=== PATIENT | female | born 1995 ===

== ENCOUNTER 2017-02-15 02:14 | Emergency (ER) | payer OTHER ==
[2017-02-15 02:30] VITALS: BP 114/73
--- NOTE | 2017-02-15 02:38 | EDM.PDOC ---
ED HPI GENERAL MEDICAL PROBLEM - General Chief Complaint: Neurological Problem Stated Complaint: CONFUSED AND NUMB FEELING Time Seen by Provider: 02/15/17 02:22 Source of Information: Reports: Patient, Family History Limitations: Reports: No Limitations - History of Present Illness INITIAL COMMENTS - FREE TEXT/NARRATIVE: This is a 21-year-old female. She went out to [employer] this evening with some of her girl friends. She states she maybe had for 5 drinks. She remembers going outside with her friends because one of her friends was throwing up and she was holding her hair back and then she remembers another friend coming by and saying, "come with me Jeferson she is going to be okay." That is the last thing this patient remembers in the next thing she remembers she is walking up the stairs to her parents house and she goes inside. She doesn 't remember getting out of a car she does remember anything since that time and she doesn't remember the time frame between when she was with her friend that was throwing up and getting to her parents house. Her mother states that when she came into the house the patient was trying to tell them a story but the story didn't make any sense at all. The patient was not slurring at the time. The patient states she has no idea where her purse is or where her car is. She says to her parents she was at a republican at another person's house but when they go to that person's house there is a car there that is like hers but it is not her ears. Due to this confusion she is having she comes to the ER. When I speak to the patient without the mother in the room the patient denies when she became aware that she was at home and her parents that anything was disturbed in her breast area or her underwear was disturbed and she has no vaginal discharge. She does not believe that she was molested but she isn't absolutely certain either. She says she just doesn't remember what happened during that time. She is tearful. - Related Data Allergies Allergy/AdvReac Type Severity Reaction Status Date / Time oxycodone Allergy Nausea and Verified 02/15/17 02:30 Vomiting red dye Allergy Headache Verified 02/15/17 02:30 Home Meds: Home Meds Aspirin [Halfprin] 81 mg PO Q2D 08/07/14 [History] Control Med 1 tab PO DAILY 08/07/14 [History] Past Medical History HEENT History: Reports: Impaired Vision, Other (See Below) Other HEENT History: wears glasses Other Cardiovascular History: aoritc valve regurgitation and aortic stenosis Gastrointestinal History: Reports: Gastritis [employer] History: Reports: Polycystic Ovaries Neurological History: Reports: CVA, Other (See Below) Other Neuro History: at age 12; 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 Psychiatric History: Reports: ADD Other Oncologic History: benign brain tumor - Past Surgical History HEENT Surgical History: Reports: Tonsillectomy Other Musculoskeletal Surgeries/Procedures:: bunionectomy Social & Family History - Family History Family Medical History: Noncontributory - Tobacco Use Smoking Status *Q: Never Smoker Second Hand Smoke Exposure: No - Alcohol Use Days Per Week of Alcohol Use: 0 - Recreational Drug Use Recreational Drug Use: No - Living Situation & Occupation Living situation: Reports: Single Occupation: Employed ED ROS GENERAL - Review of Systems Review Of Systems: See Below Constitutional: Reports: No Symptoms HEENT: Reports: No Symptoms Respiratory: Reports: No Symptoms Cardiovascular: Reports: No Symptoms Endocrine: Reports: No Symptoms GI/Abdominal: Reports: No Symptoms : Reports: No Symptoms Musculoskeletal: Reports: No Symptoms Skin: Reports: No Symptoms Neurological: Reports: Confusion, Other (She has a history of a stroke when she was 12 years old but everything resolved) Psychiatric: Reports: Anxiety, Confusion Hematologic/Lymphatic: Reports: No Symptoms - Physical Exam Exam: See Below Exam Limited By: No Limitations General Appearance: Alert, WD/WN, Mild Distress, Other (She is oriented [address] time and person and the people around her she knows) Eye Exam: Bilateral Eye: Normal Inspection Ears: Normal External Exam, Normal Canal, Normal TMs Nose: Normal Inspection Throat/Mouth: Normal Inspection, Normal Lips, Normal Voice, No Airway Compromise Head Exam: Normocephalic Neck: Normal Inspection, Supple Respiratory/Chest: No Respiratory Distress, Lungs Clear, Normal Breath Sounds Cardiovascular: Regular Rate, Rhythm, No Murmur GI/Abdominal: Soft, Non-Tender Neuro Exam (Abbreviated): Alert, Oriented, No Motor/Sensory Deficits, Confused, Other (Patient has no facial drooping or ptosis, she moves her all 4 extremities equally 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 Course - Vital Signs Last Recorded V/S: Last Vital Signs Temp 97.5 F 02/15/17 02:23 Pulse 95 02/15/17 02:23 Resp 18 02/15/17 02:23 BP 114/73 02/15/17 02:23 Pulse Ox 100 02/15/17 02:23 - Orders/Labs/Meds Orders: Active Orders 24 hr Category Date Time Status Head wo Cont [CT] Stat Exams 02/15/17 02:31 Taken Labs: Laboratory Tests 02/15/17 02/15/17 02/15/17 Range/Units 02:45 02:45 02:48 WBC 8.46 (3.98-10.04) K/mm3 RBC 4.71 (3.98-5.22) M/mm3 Hgb 12.5 (11.2-15.7) gm/L Hct 36.6 (34.1-44.9) % MCV 77.7 L (79.4-94.8) fl MCH 26.5 (25.6-32.2) pg MCHC 34.2 (32.2-35.5) g/dl RDW Std Deviation 41.3 (36.4-46.3) fL Plt Count 301 (182-369) K/mm3 MPV 9.8 (9.4-12.3) fl Neut % (Auto) 44.3 (34.0-71.1) % Lymph % (Auto) 42.1 (19.3-51.7) % [place] % (Auto) 8.2 (4.7-12.5) % Eos % (Auto) 4.5 (0.7-5.8) Baso % (Auto) 0.7 (0.1-1.2) % Neut # (Auto) 3.75 (1.56-6.13) K/mm3 Lymph # (Auto) 3.56 (1.18-3.74) K/mm3 Sierra # (Auto) 0.69 H (0.24-0.36) K/mm3 Eos # (Auto) 0.38 H (0.04-0.36) K/mm3 Baso # (Auto) 0.06 (0.01-0.08) K/mm3 Sodium (136-145) mEq/L Potassium (3.5-5.1) mEq/L Chloride (98-107) mEq/L Carbon Dioxide (21-32) mEq/L Anion Gap (5-15) BUN (7-18) mg/dL Creatinine (0.55-1.02) mg/dL Est Cr Clr Drug Dosing mL/min Estimated GFR (MDRD) (>60) mL/min BUN/Creatinine Ratio (14-18) Glucose (74-106) mg/dL Calcium (8.5-10.1) mg/dL Total Bilirubin (0.2-1.0) mg/dL AST (15-37) U/L ALT (14-59) U/L Alkaline Phosphatase (46-116) U/L Total Protein (6.4-8.2) g/dl Albumin (3.4-5.0) g/dl Globulin gm/dL Albumin/Globulin Ratio (1-2) HCG, Qual (NEGATIVE) Urine Color Light yellow (Yellow) Urine Appearance Clear (Clear) Urine pH 6.5 (5.0-8.0) Ur Specific [place] 1.010 (1.005-1.030) Urine Protein Negative (Negative) Urine Glucose (UA) Negative (Negative) Urine Ketones Negative (Negative) Urine Occult Blood Negative (Negative) Urine Nitrite Negative (Negative) Urine Bilirubin Negative (Negative) Urine Urobilinogen 0.2 (0.2-1.0) Ur Leukocyte Esterase Negative (Negative) Urine RBC Not seen (0-5) /hpf Urine WBC Not seen (0-5) /hpf Ur Epithelial Cells Not seen (0-5) /hpf Urine Bacteria Not seen (FEW) /hpf Urine Mucus Not seen (FEW) /hpf Urine Opiates Screen Negative (NEGATIVE) Ur Buprenorphine Scrn Negative (NEGATIVE) Ur Oxycodone Screen Negative (NEGATIVE) Urine Methadone Screen Negative (NEGATIVE) Ur Propoxyphene Screen Negative (NEGATIVE) Ur Barbiturates Screen Negative (NEGATIVE) Ur Tricyclics Screen Negative (NEGATIVE) Ur Phencyclidine Scrn Negative (NEGATIVE) Ur Amphetamine Screen Negative (NEGATIVE) U Methamphetamines Scrn Negative (NEGATIVE) U Benzodiazepines Scrn Negative (NEGATIVE) U Cocaine Metab Screen Negative (NEGATIVE) U Marijuana (THC) Screen Negative (NEGATIVE) Ethyl Alcohol (0.00) gm% 02/15/17 02/15/17 Range/Units 02:48 02:48 WBC (3.98-10.04) K/mm3 RBC (3.98-5.22) M/mm3 Hgb (11.2-15.7) gm/L Hct (34.1-44.9) % MCV (79.4-94.8) fl MCH (25.6-32.2) pg MCHC (32.2-35.5) g/dl RDW Std Deviation (36.4-46.3) fL Plt Count (182-369) K/mm3 MPV (9.4-12.3) fl Neut % (Auto) (34.0-71.1) % Lymph % (Auto) (19.3-51.7) % Sierra % (Auto) (4.7-12.5) % Eos % (Auto) (0.7-5.8) Baso % (Auto) (0.1-1.2) % Neut # (Auto) (1.56-6.13) K/mm3 Lymph # (Auto) (1.18-3.74) K/mm3 [place] # (Auto) (0.24-0.36) K/mm3 Eos # (Auto) (0.04-0.36) K/mm3 Baso # (Auto) (0.01-0.08) K/mm3 Sodium 145 (136-145) mEq/L Potassium 3.9 (3.5-5.1) mEq/L Chloride 109 H (98-107) mEq/L Carbon Dioxide 25 (21-32) mEq/L Anion Gap 14.9 (5-15) BUN 8 (7-18) mg/dL Creatinine 0.7 (0.55-1.02) mg/dL Est Cr Clr Drug Dosing 95.93 mL/min Estimated GFR (MDRD) > 60 (>60) mL/min BUN/Creatinine Ratio 11.4 L (14-18) Glucose 90 (74-106) mg/dL Calcium 9.0 (8.5-10.1) mg/dL Total Bilirubin 0.1 L (0.2-1.0) mg/dL AST 27 (15-37) U/L ALT 41 (14-59) U/L Alkaline Phosphatase 73 (46-116) U/L Total Protein 7.6 (6.4-8.2) g/dl Albumin 3.9 (3.4-5.0) g/dl Globulin 3.7 gm/dL Albumin/Globulin Ratio 1.1 (1-2) HCG, Qual Negative (NEGATIVE) Urine Color (Yellow) Urine Appearance (Clear) Urine pH (5.0-8.0) Ur Specific [place] (1.005-1.030) Urine Protein (Negative) Urine Glucose (UA) (Negative) Urine Ketones (Negative) Urine Occult Blood (Negative) Urine Nitrite (Negative) Urine Bilirubin (Negative) Urine Urobilinogen (0.2-1.0) Ur Leukocyte Esterase (Negative) Urine RBC (0-5) /hpf Urine WBC (0-5) /hpf Ur Epithelial Cells (0-5) /hpf Urine Bacteria (FEW) /hpf Urine Mucus (FEW) /hpf Urine Opiates Screen (NEGATIVE) Ur Buprenorphine Scrn (NEGATIVE) Ur Oxycodone Screen (NEGATIVE) Urine Methadone Screen (NEGATIVE) Ur Propoxyphene Screen (NEGATIVE) Ur Barbiturates Screen (NEGATIVE) Ur Tricyclics Screen (NEGATIVE) Ur Phencyclidine Scrn (NEGATIVE) Ur Amphetamine Screen (NEGATIVE) U Methamphetamines Scrn (NEGATIVE) U Benzodiazepines Scrn (NEGATIVE) U Cocaine Metab Screen (NEGATIVE) U Marijuana (THC) Screen (NEGATIVE) Ethyl Alcohol 0.22 (0.00) gm% - Radiology Interpretation Free Text/Narrative:: CT of the head does not show any acute changes - Re-Assessments/Exams Free Text/Narrative Re-Assessment/Exam: 02/15/17 03:40 I spoke to the patient regarding the blood work and alcohol level. With the patient's permission I also spoke to the parents regarding the CAT scan and blood work. Without the parents in the room I did discuss with the patient about drinking so much that she blacked out. She doesn't feel like anything else occurred that she did not have any sexual relations. I did corrections counselor her that if she did have something like this happen that there is always that chance of getting an infection and if so she needs to be checked when [place]. She denies any molestation or assault at this time. The [place] police did come up and get a statement from her. Departure - Departure Time of Disposition: 03:42 Disposition: Home, Self-Care 01 Condition: Good Clinical Impression: Alcohol intoxication Qualifiers: Complication of substance-induced condition: uncomplicated Qualified Code(s): F10.920 - Alcohol use, unspecified with intoxication, uncomplicated Altered mental status Qualifiers: Altered mental status type: disorientation Qualified Code(s): R41.0 - Disorientation, unspecified - Discharge Information Referrals: Jackelyn Cortés PA [Primary Care Provider] - Forms: ED Department Discharge Additional Instructions: Do not drink any alcohol for the next 48 hours, when you get back to [place] if there is any further symptoms please be seen by your physician or go back to an ER to be reevaluated, return to this ER if needed - My Orders Last 24 Hours: My Active Orders 02/15/17 02:31 Head wo Cont [CT] Stat - Assessment/Plan Last 24 Hours: My Active Orders 02/15/17 02:31 Head wo Cont [CT] Stat
--- NOTE | 2017-02-16 06:45 | CT ---
Head CT Technique: Multiple axial sections through the brain were obtained. Intravenous contrast was not utilized. Comparison: No prior head CT, prior MRI brain of 03/03/14 is available. Findings: Ventricles along with basal cisterns and sulci over the convexities are within normal limits for the patient's age. No abnormal parenchymal densities are seen. No evidence of intracranial hemorrhage. No midline shift or mass effect is seen. Bone window settings were reviewed which show no discrete calvarial abnormality. Visualized sinuses are clear. Impression: 1. Nothing acute is seen on noncontrast head CT exam. Diagnostic code #1 Agree with preliminary report issued by [facility] ([facility] preliminary report dictated on 02/15/17, 4:11 AM Central Time)
== END 2017-02-15 03:45 | disposition home or self-care (01) ==
LOC: JD.ED 02:14
DX: F10.120 Alcohol abuse with intoxication, uncomplicated (principal); R41.0 Disorientation, unspecified; Z88.5 Allergy status to narcotic agent; Z79.82 Long term (current) use of aspirin; Y90.0 Blood alcohol level of less than 20 mg/100 ml
CPT/HCPCS: 36415; 70450; 80053; 80306; 81001; 84703; 85025; 99284; G0480